=== PATIENT | female | born 1935 | race Asian ===

== ENCOUNTER 2016-11-30 14:31 | Outpatient (CLI) | payer MEDICARE, OTHER ==
--- NOTE | 2016-11-30 16:09 | XRay Report ---
AP and lateral the cervical spine. Findings: There is no evidence of fracture or subluxation. The vertebral body heights are well-maintained. Minimal narrowing of the disc spaces is seen at C5-6 and C6-7. Mild facet joint arthropathy is present. There is no prevertebral soft tissue edema. The odontoid is intact. Impression: Mild spondylosis and facet arthropathy in the lower cervical spine with no acute findings.
--- NOTE | 2016-11-30 16:14 | XRay Report ---
AP and lateral of the skull. Findings: There are no fractures or other acute findings. Bone mineralization is normal. The sella turcica appears normal. The mastoid air cells appear normal. Electrodes are seen in the posterior fossa bilaterally. Impression: No acute findings.
== END 2016-11-30 14:32 | disposition home or self-care (01) ==
LOC: SPVIMAG 14:31
PROVIDERS: ATTEND Internal Medicine
DX: M47.892 Other spondylosis, cervical region (principal); G43.909 Migraine, unspecified, not intractable, without status migrainosus; M12.88 Other specific arthropathies, not elsewhere classified, other specified site
CPT/HCPCS: 70250; 72040